=== PATIENT | female | born 1990 | race Caucasian/White ===

== ENCOUNTER 2016-11-13 16:45 | Emergency (ER) | payer OTHER ==
[~2016-11-13] VITALS: Ht 162.5 cm; Wt 65.8 kg
[2016-11-13 18:49] LABS: BILIRUBIN NEGATIVE (NEGATIVE); BLOOD 3+ (NEGATIVE); CLARITY CLOUDY (CLEAR); COLOR YELLOW (YELLOW); GLUCOSE NEGATIVE (NEGATIVE); KETONE TRACE (NEGATIVE); LEUKO ESTERASE 3+ (NEGATIVE); NITRITE NEGATIVE (NEGATIVE); PROTEIN TRACE (NEGATIVE); SPECIFIC GRAVITY 1.025 (1.005-1.030)
[2016-11-13 19:00] LABS: BACTERIA 1+; EPITHELIAL CELLS TNTC; RBC 21-30 rbc/hpf (0-2); URINE REFLEX COMMENT YES (NO); WBC TNTC wbc/hpf (0-5)
[2016-11-13] MEDS ORDERED: MACROBID100 M1 PO (19:06)
== END 2016-11-13 22:01 | disposition home or self-care (01) ==
LOC: ED 16:45
PROVIDERS: Registered Nurse
DX: N30.01 Acute cystitis with hematuria (principal); N83.202 Unspecified ovarian cyst, left side; F17.200 Nicotine dependence, unspecified, uncomplicated